=== PATIENT | female | born 1940 | race Caucasian/White ===

== ENCOUNTER → 2018-06-19 09:00 | Outpatient (CLI) | payer MEDICARE, SELFPAY | DX: Z23 Encounter for immunization (principal) | CPT/HCPCS: 90471; 90662 ==

== ENCOUNTER → 2018-11-24 12:49 | Outpatient (CLI) | payer MEDICARE, SELFPAY | PROVIDERS: PCP Internal Medicine; Visit Provider Internal Medicine | DX: M85.851 Other specified disorders of bone density and structure, right thigh (principal); Z78.0 Asymptomatic menopausal state; Z85.3 Personal history of malignant neoplasm of breast; Z90.722 Acquired absence of ovaries, bilateral | CPT/HCPCS: 77080 ==

== ENCOUNTER → 2020-05-02 08:13 | Outpatient (CLI) | payer MEDICARE, SELFPAY ==
[2020-05-02 09:01] LABS: Add Manual Diff / Slide Review NO; Basophils Absolute Auto 0 /uL (0-100); Basophils Percent Auto 0.3 % (0-2); Eosinophils Absolute Auto 400 /uL (0-450); Eosinophils Percent Auto 6.5 % (2-4); Hematocrit 38.9 % (36-46); Hemoglobin 13.1 g/dL (12.0-16.0); Lymphocytes Absolute Auto 2400 /uL (1100-4500); Lymphocytes Percent Auto 38.4 % (25-40); Mean Corpuscular HGB Conc 33.6 % (30-36); Mean Corpuscular Volume 92.2 fL (80-100); Monocytes Absolute Auto 600 /uL (0-900); Monocytes Percent Auto 9.1 % (3-14); Neutrophils Absolute Auto 2900 /uL (1500-7000); Neutrophils Percent Auto 45.7 % (50-75); Platelet Count 308 X10^3/uL (150-400); Red Blood Cell Count 4.22 X10^6/uL (4.0-5.2); Red Cell Distribution Width 13.1 % (11.6-14.8); White Blood Cell Count 6.3 X10^3/uL (4.5-11.0)
[2020-05-02 09:19] LABS: Alanine Aminotransferase 43 IU/L (<35); Albumin 4.5 g/dL (3.5-5.0); Albumin Globulin Ratio 1.8 (1.0-2.8); Alkaline Phosphatase 62 U/L (38-126); Aspartate Aminotransferase 34 IU/L (14-36); BUN Creatinine Ratio 17.6 (6-22); Bilirubin Total 0.7 mg/dL (0.2-1.3); Blood Urea Nitrogen 15 mg/dL (7-17); Calcium 10.1 mg/dL (8.4-10.2); Carbon Dioxide 27 mmol/L (22-32); Chloride 105 mmol/L (98-107); Cholesterol 225 mg/dL (140-199); Estimated Glomerular Filt Rate > 60.0 mL/min (>60); Globulin 2.5 g/dL (1.7-4.1); Glucose 112 mg/dL (80-110); HDL Cholesterol 75 mg/dL (40-60); HEMOLYSIS < 15 (0-50); LDL Cholesterol Calculated 128 mg/dL (<100); Potassium 4.3 mmol/L (3.4-5.1); Sodium 138 mmol/L (137-145); Triglycerides 111 mg/dL (35-150)
[2020-05-02 09:44] LABS: Free T3, Triiodothyronine Free 3.49 pg/mL (2.77-5.27); Free T4, Direct Thyroxine 0.98 ng/dL (0.78-2.19)
== END ==
PROVIDERS: PCP Family Medicine; Referring Provider Family Medicine; Visit Provider Family Medicine
DX: E78.5 Hyperlipidemia, unspecified (principal); I10 Essential (primary) hypertension; Z13.29 Encounter for screening for other suspected endocrine disorder
CPT/HCPCS: 36415; 80053; 80061; 84439; 84443; 84481; 85025

== ENCOUNTER → 2020-06-17 00:43 | Outpatient (CLI) | payer MEDICARE, SELFPAY | PROVIDERS: PCP Family Medicine; Referring Provider Internal Medicine; Visit Provider Internal Medicine | DX: Z23 Encounter for immunization (principal) | CPT/HCPCS: 90471; 90662 ==

== ENCOUNTER → 2020-09-18 13:26 | Outpatient (CLI) | payer MEDICARE, SELFPAY ==
[2020-09-18] MEDS: COVID-19 VACC(MODERNA-1)/PF 100 MCG/0.5 ML VIAL IM (13:32)
== END ==
PROVIDERS: PCP Family Medicine; Visit Provider Internal Medicine
DX: Z23 Encounter for immunization (principal)
CPT/HCPCS: 0011A; 91301

== ENCOUNTER → 2020-10-16 13:26 | Outpatient (CLI) | payer MEDICARE, SELFPAY ==
[2020-10-16] MEDS: COVID-19 VACC #2, MRNA(MOD) 100 MCG/0.5 ML VIAL IM (13:32)
== END ==
PROVIDERS: PCP Family Medicine; Visit Provider Internal Medicine
DX: Z23 Encounter for immunization (principal)
CPT/HCPCS: 0012A; 91301

== ENCOUNTER → 2021-04-16 09:43 | Outpatient (CLI) | payer MEDICARE, SELFPAY ==
[2021-04-16 10:56] LABS: COVID19 -Nasal RAPID Negative (Negative)
== END ==
PROVIDERS: PCP Family Medicine; Visit Provider Physician Assistant
DX: Z20.822 Contact with and (suspected) exposure to COVID-19 (principal)
CPT/HCPCS: 87635

== ENCOUNTER → 2021-04-21 11:42 | Outpatient (CLI) | payer MEDICARE, SELFPAY ==
[2021-04-21 12:39] LABS: COVID19 -Nasal RAPID Negative (Negative)
== END ==
PROVIDERS: PCP Family Medicine; Visit Provider Nurse Practitioner
DX: Z20.822 Contact with and (suspected) exposure to COVID-19 (principal)
CPT/HCPCS: 87635

== ENCOUNTER → 2021-04-27 13:51 | Outpatient (CLI) | payer MEDICARE, SELFPAY ==
[2021-04-27 15:38] LABS: COVID19 -Nasal RAPID Negative (Negative)
== END ==
PROVIDERS: PCP Family Medicine; Referring Provider Physician Assistant; Visit Provider Physician Assistant
DX: Z20.822 Contact with and (suspected) exposure to COVID-19 (principal)
CPT/HCPCS: 87635

== ENCOUNTER → 2023-05-20 08:00 | Outpatient (CLI) | payer MEDICARE, SELFPAY ==
[2023-05-20 08:43] LABS: Add Manual Diff / Slide Review NO; Basophils Absolute Auto 0 /uL (0-100); Basophils Percent Auto 0.2 % (0-2); Eosinophils Absolute Auto 200 /uL (0-450); Eosinophils Percent Auto 4.8 % (2-4); Hematocrit 35.2 % (36-46); Hemoglobin 12.3 g/dL (12.0-16.0); Lymphocytes Absolute Auto 1800 /uL (1100-4500); Lymphocytes Percent Auto 38.7 % (25-40); Mean Corpuscular Hemoglobin 32.6 PG (26-34); Mean Corpuscular Volume 93.2 fL (80-100); Monocytes Absolute Auto 500 /uL (0-900); Neutrophils Absolute Auto 2100 /uL (1500-7000); Neutrophils Percent Auto 46.3 % (50-75); Platelet Count 275 X10^3/uL (150-400); Red Blood Cell Count 3.78 X10^6/uL (4.0-5.2); Red Cell Distribution Width 13.4 % (11.6-14.8); White Blood Cell Count 4.6 X10^3/uL (4.5-11.0)
[2023-05-20 09:42] LABS: BUN Creatinine Ratio 34.3 (6-22); Blood Urea Nitrogen 23 mg/dL (7-17); Calcium 9.3 mg/dL (8.4-10.2); Carbon Dioxide 27 mmol/L (22-32); Chloride 97 mmol/L (98-107); Cholesterol 258 mg/dL (140-199); Estimated Glomerular Filt Rate > 60 mL/min (>60); Glucose 110 mg/dL (80-110); HDL Cholesterol 80 mg/dL (40-60); HEMOLYSIS < 15 (0-50); LDL Cholesterol Calculated 158 mg/dL (<100); Potassium 4.1 mmol/L (3.4-5.1); Sodium 132 mmol/L (137-145); Triglycerides 101 mg/dL (35-150)
== END ==
PROVIDERS: PCP Family Medicine; Referring Provider Family Medicine; Visit Provider Family Medicine
DX: E78.5 Hyperlipidemia, unspecified (principal); I10 Essential (primary) hypertension
CPT/HCPCS: 36415; 80048; 80061; 85025

== ENCOUNTER → 2023-06-29 19:43 | Outpatient (CLI) | payer MEDICARE, SELFPAY ==
--- NOTE | 2023-06-29 | DI.MRI.S_ITS ---
PROCEDURE: MR LUMBAR SPINE WO CON INDICATIONS: radiculopathy, lumbar region TECHNIQUE: Noncontrast sagittal T1 spin echo and T2 fast echo, sagittal STIR, and T2 fast spin echo through the lumbar spine. In cases with scoliosis, additional coronal T2 fast spin echo may be performed. COMPARISON: [facility], CR, XR LUMBAR SPINE 2 OR 3 VIEWS, 06/06/2023, 17:52. FINDINGS: Image quality: Excellent. Alignment and Curvature: Mild grade 1 anterolisthesis of L4 on L5. Bone Marrow: Marrow is of normal overall signal. No acute vertebral body compression fractures. Spinal Cord: Conus medullaris terminates at the L1 level. Visualized cord demonstrates normal signal and size. Paraspinous Soft Tissues: No paravertebral masses. T12-L1: Disc desiccation and mild height loss with diffuse disc bulge. Mild facet arthropathy. No central canal or neural foraminal stenosis. L1-L2: Disc desiccation and height loss with diffuse disc bulge. Superimposed small central disc protrusion. Mild facet arthropathy. No central canal stenosis. No neural foraminal stenosis. L2-L3: Disc desiccation and height loss with mild diffuse disc bulge. Facet arthropathy and thickening of the ligamentum flavum. Mild central canal stenosis. Mild bilateral neural foraminal stenosis. L3-L4: Disc desiccation and height loss with diffuse disc bulge. There is a superimposed right paracentral and subarticular disc protrusion resulting in severe narrowing of the right lateral recess with impingement of the descending right L4 nerve root and moderate to severe central canal stenosis. Facet arthropathy. Mild epidural lipomatosis. Mild bilateral neural foraminal stenosis. L4-L5: Disc desiccation. Facet arthropathy and thickening of the ligamentum flavum. Mild epidural lipomatosis. Moderate central canal stenosis. Narrowing of the right lateral recess with abutment versus impingement of the descending right L5 nerve root. L5-S1: Disc desiccation. Facet arthropathy and thickening of the ligamentum flavum. No central canal stenosis. Mild bilateral neural foraminal stenosis. IMPRESSION: 1. Multilevel degenerative changes of the lumbar spine as described above. 2. At L3-L4 there is a right paracentral disc protrusion resulting in severe narrowing of the right lateral recess with impingement of the descending right L4 nerve root. 3. Moderate to severe central canal stenosis at L3-L4 and moderate at L4-L5. 4. Mild multilevel neural foraminal stenosis. 5. Moderate narrowing of the right lateral recess at L4-5 with abutment versus impingement of the descending right L5 nerve root. Dictated by: Eleuterio Velazquez M.D. on 06/30/2023 at 10:28 Approved by: Eleuterio Velazquez M.D. on 06/30/2023 at 10:33
== END ==
PROVIDERS: PCP Family Medicine; Referring Provider Orthopaedic Surgery; Visit Provider Orthopaedic Surgery
DX: M54.16 Radiculopathy, lumbar region (principal); M51.26 Other intervertebral disc displacement, lumbar region; M48.061 Spinal stenosis, lumbar region without neurogenic claudication
CPT/HCPCS: 72148

== ENCOUNTER 2023-07-27 18:34 | Emergency (ER) | payer OTHER, SELFPAY ==
[2023-07-27 18:51] VITALS: BP 209/105; PULSE 90; RESP 18; TEMP 36.8; O2SAT 97; BMI 31.1
[2023-07-27 22:35] VITALS: PULSE 73; RESP 18; O2SAT 97
[2023-07-27 23:03] VITALS: BP 207/97
--- NOTE | 2023-07-27 23:11 | ED_ITS ---
HPI - Back Pain/Injury General Chief Complaint: Back Pain/Injury Stated Complaint: back pain for several months. Time Seen by Provider: 07/27/23 19:14 Source: patient, EMS, RN notes reviewed and old records reviewed Mode of arrival: EMS Limitations: no limitations History of Present Illness HPI Narrative: This is a 82-year-old female with history of hypertension, prior breast cancer with acute on chronic back pain. Patient states pain has been rapidly worsening over the past 1-2 months. She did go to PT which just seemed to aggravate things. She had an L-spine MRI on June 29, she saw pain management with Dr. Marvin was recommended to have injections was in touch with her insurance company today who states they had received the request. She has been taking meloxicam, gabapentin, Tylenol regularly for pain and has not had well- controlled pain. She was given a script for some tramadol. She notes she ran out of her gabapentin yesterday. She states she did not receive prednisone at 1 point which was the most helpful medication for her pain management. Patient states pain is more on the right radiates down her leg. She has paresthesias down the right which are not new or changed. She denies any new loss of bowel or bladder control but had noticed some more frequency in less urine output. She states her last doses of pain medication were at 2:00 p.m. today, she states does not seem to be much worse accept when she tries to move. Most comfortable position is lying flat on her back. Patient states she has not had any prior back surgeries. She is allergy to penicillin. She notes prior hysterectomy, bilateral mastectomy. Patient has not had injections to her back before. No tobacco, occasional alcohol, no recreational drugs. Dr. Hampton is her PCP. Related Data Home Medications Medication Instructions Recorded Confirmed Resmed Airsense 10 CPAP #1 ea 03/14/19 07/18/23 cholecalciferol (vitamin D3) 50 2,000 unit PO DAILY 03/14/19 07/18/23 mcg (2,000 unit) capsule milk thistle 3 tab PO DAILY 04/11/20 07/18/23 natural calm - magnesium 1 tab PO 04/11/20 07/18/23 AG1(greens powder) PO DAILY 07/07/23 07/18/23 Collegan (Correxko) PO BID 07/07/23 07/18/23 acetaminophen 500 mg tablet 1,000 mg PO QID 07/07/23 07/18/23 gabapentin 300 mg capsule 900 mg PO BID Lumbar Pain Nerve 07/07/23 07/18/23 Impingement meloxicam 15 mg tablet 15 mg PO DAILY Lumbar Pain nerve 07/07/23 07/18/23 impingement Previous Rx's Medication Instructions Recorded betamethasone dipropionate 0.05 % 1 applictn topical BID PRN itching 06/11/20 topical ointment #15 grams clobetasol 0.05 % scalp solution 1 applic topical DAILY PRN eczema 11/11/20 #50 mL Mastectomy bra to include #1 ea 04/20/23 prosthesis hydrochlorothiazide 25 mg tablet See Rx Instructions .Route 05/27/23 .COMPLEX #90 tabs lisinopril 40 mg tablet See Rx Instructions .Route 05/27/23 .COMPLEX #90 tabs tramadol 50 mg tablet 50 mg PO TID PRN pain #30 tabs 07/18/23 gabapentin 300 mg capsule 600 mg (2 x 300 mg) PO TID #60 caps 07/28/23 oxycodone 5 mg tablet 5 mg PO QID PRN pain #14 tabs 07/28/23 prednisone 10 mg tablets in a dose See Rx Instructions .Route 07/28/23 pack .COMPLEX #45 ea Allergies Allergy/AdvReac Type Severity Reaction Status Date / Time Penicillins Allergy Mild rashes Verified 07/18/23 15:32 Review of Systems Review of Systems ROS Unobtainable: All systems reviewed & are unremarkable except as noted in HPI and below Patient History Medical History Lumbar spondylosis Lumbar radiculopathy Chronic low back pain Strain of right piriformis muscle Segmental and somatic dysfunction of abdomen and other regions Sacral region somatic dysfunction Pelvic somatic dysfunction Acute right-sided low back pain without sciatica Chronic left shoulder pain Dry eye Skin tag Itching Acute right eye pain Right arm pain Cranial somatic dysfunction Thoracic region somatic dysfunction Segmental and somatic dysfunction of rib cage Cervical somatic dysfunction Chronic right shoulder pain Chronic neck pain with normal neurological examination Neck stiffness Bilateral shoulder pain Lower extremity edema Rash and nonspecific skin eruption Hyperlipidemia Rash and nonspecific skin eruption Bilateral arm pain Upper extremity somatic dysfunction Carpal tunnel syndrome of left wrist History of breast cancer Eczema (~2009) Osteoarthritis Shoulder pain (~1993) Mumps (~1952) Measles (~1948) History of chickenpox (~1947) Tinnitus (~2007) Hypertension Surgical History History of bilateral mastectomy Anesthesia History of cataract removal with insertion of prosthetic lens (~04/08/16) History of eyelid surgery (~07/05/14) History of hysterectomy (~1992) S/P arthroscopic knee surgery (~1989) History of mastectomy, total (~09/27/12) History of carpal tunnel release (~1996) Family History Father Cancer Mother Cancer History of emphysema Brother No problems noted. Brother COPD (chronic obstructive pulmonary disease) Dementia Mental health problem Hospice care Grandfather Cancer Hypertension Grandmother Cancer History of heart disease Hyperlipidemia Hypertension Grandfather History of heart disease Grandmother Hypertension Stroke Social History Smoking Status: Never smoker alcohol intake: current substance use type: does not use Smoking Status: Never smoker alcohol intake frequency: 0-2 drinks per day Substance Use Type: does not use Exam Narrative Exam Narrative: GENERAL: Alert and oriented x three, well-nourished female in mild distress unless she tries to move from the bed. HEENT: Head normocephalic, atraumatic, EOMI, pupils reactive, face symmetric, moist mucous membranes NECK: Supple, full range of motion CARDIOVASCULAR: Regular rate and rhythm without murmurs, rubs or gallops. RESPIRATORY: Breath sounds equal bilaterally, no wheezes rales or rhonchi. ABDOMEN: Soft, nontender. Normoactive bowel sounds all 4 quadrants. No guarding or rebound, rigidity, no mass : No CVA tenderness BACK: No cervical, thoracic or lumbar vertebral point tenderness. Patient has decreased range of motion. Rectal exam is [normal sphincter tone/decreased tone/no tone/deferred or refused]. Muscle strength is 5/5 in lower extremities, DTRs are 2/4 and lower extremities. Dorsalis pedis and tibialis pulses are 2+ and lower extremities. Sensation is intact in the lower extremities. EXTREMITIES: Normal range of motion, no clubbing or edema. Neurovascularly intact NEUROLOGICAL: Cranial nerves II through XII grossly intact. Moving all extremities SKIN: Warm, dry, no petechiae, no rashes or lesions. Initial Vital Signs Initial Vital Signs: Vital Signs Temperature 98.2 F 07/27/23 18:51 Pulse Rate 90 07/27/23 18:51 Respiratory Rate 18 07/27/23 18:51 Blood Pressure 209/105 H 07/27/23 18:51 Pulse Oximetry 97 07/27/23 18:51 Oxygen Delivery Method Room Air 07/27/23 18:51 Course Orders Ordered: Discontinued Medications Gabapentin (Gabapentin 600 Mg Tablet) 600 mg PO NOW ONE Stop: 07/27/23 23:39 Last Admin: 07/27/23 23:51 Dose: 600 mg Documented By: KASIA Ketorolac Tromethamine (Ketorolac 30 Mg/Ml Vial) 30 mg IM NOW ONE Stop: 07/27/23 23:39 Last Admin: 07/27/23 23:49 Dose: 30 mg Documented By: KASIA Morphine Sulfate (Morphine 4 Mg/Ml Inj) 4 mg IV NOW ONE Stop: 07/28/23 01:22 Last Admin: 07/28/23 01:44 Dose: 4 mg Documented By: KASIA Oxycodone/Acetaminophen (Oxycodone/Acetaminophen 5/325 Tablet) 2 tab PO NOW ONE Stop: 07/27/23 23:39 Last Admin: 07/27/23 23:51 Dose: 2 tab Documented By: KASIA Prednisone (Prednisone 20 Mg Tablet) 60 mg PO NOW ONE Stop: 07/27/23 23:39 Last Admin: 07/27/23 23:51 Dose: 60 mg Documented By: KASIA Vital Signs Vital signs: Vital Signs - 8 hr 07/27/23 22:35 07/27/23 23:03 07/28/23 01:45 Pulse Rate 73 60 Respiratory Rate 18 16 Blood Pressure 207/97 H 179/93 H Pulse Oximetry 97 97 Oxygen Delivery Method Room Air Room Air MDM - Back Pain/Injury Lab Data 07/28/23 01:30 07/28/23 01:30 Labs: Lab Results 07/28/23 Range/Units 01:30 WBC 6.2 (4.5-11.0) X10^3/uL RBC 3.91 L (4.0-5.2) X10^6/uL Hgb 12.8 (12.0-16.0) g/dL Hct 36.9 (36-46) % MCV 94.4 (80-100) fL MCH 32.8 (26-34) PG MCHC 34.7 (30-36) % RDW 12.8 (11.6-14.8) % Plt Count 291 (150-400) X10^3/uL Neut % (Auto) 67.1 (50-75) % Lymph % (Auto) 23.2 L (25-40) % [place] % (Auto) 6.2 (3-14) % Eos % (Auto) 3.1 (2-4) % Baso % (Auto) 0.4 (0-2) % Neut # (Auto) 4100 (2818-4637) /uL Lymph # (Auto) 1400 (8645-6161) /uL [place] # (Auto) 400 (0-900) /uL Eos # (Auto) 200 (0-450) /uL Baso # (Auto) 0 (0-100) /uL PT 14.3 H (10.1-12.7) SECONDS INR 1.2 (0.9-1.3) APTT 33 (26-36) SECONDS Sodium 134 L (137-145) mmol/L Potassium 3.7 (3.4-5.1) mmol/L Chloride 98 (98-107) mmol/L Carbon Dioxide 25 (22-32) mmol/L BUN 21 H (7-17) mg/dL Creatinine 0.67 (0.52-1.04) mg/dL Estimated GFR > 60 (>60) mL/min BUN/Creatinine Ratio 31.3 H (6-22) Glucose 110 (80-110) mg/dL Calcium 9.9 (8.4-10.2) mg/dL Total Bilirubin 0.7 (0.2-1.3) mg/dL AST 34 (14-36) IU/L ALT 34 (<35) IU/L Alkaline Phosphatase 49 (38-126) U/L Total Protein 7.3 (6.3-8.2) g/dL Albumin 4.4 (3.5-5.0) g/dL Globulin 2.9 (1.7-4.1) g/dL Albumin/Globulin Ratio 1.5 (1.0-2.8) Urine Dip Bedside Urine Glucose Negative Bedside Urine Bilirubin - Negative Bedside Urine Ketone - Negative Urine Specific [place] 1.01 Bedside Urine Occult Blood - Negative Bedside Urine pH 7 Bedside Urine Protein - Negative Bedside Urine Urobilinogen - Negative Bedside Urine Nitrite - Negative Bedside Urine Leukocytes - Negative Esterase Imaging Data MR Lopez 06/2023: Radiologist's Impression: Close Lumbar Spine MRI (Signed) Eleuterio Velazquez - 06/29/23 Bone Densitometry 11/24/18 Launch?[address] [address] Magnetic Resonance Report Signed Patient: Joann Houston MR#: [id number] : 1940 Acct:[id number] Age/Sex: 82 / F Date of Service: 06/29/23 Loc: MRI Accession Number: [id number] Procedure: MR lumbar spine wo con Ordering Provider: Carlos Devi D.O. PROCEDURE: MR LUMBAR SPINE WO CON INDICATIONS: radiculopathy, lumbar region TECHNIQUE: Noncontrast sagittal T1 spin echo and T2 fast echo, sagittal STIR, and T2 fast spin echo through the lumbar spine. In cases with scoliosis, additional coronal T2 fast spin echo may be performed. COMPARISON: [facility], CR, XR LUMBAR SPINE 2 OR 3 VIEWS, 06/06/2023, 17:52. FINDINGS: Image quality: Excellent. Alignment and Curvature: Mild grade 1 anterolisthesis of L4 on L5. Bone Marrow: Marrow is of normal overall signal. No acute vertebral body compression fractures. Spinal Cord: Conus medullaris terminates at the L1 level. Visualized cord demonstrates normal signal and size. Paraspinous Soft Tissues: No paravertebral masses. T12-L1: Disc desiccation and mild height loss with diffuse disc bulge. Mild facet arthropathy. No central canal or neural foraminal stenosis. L1-L2: Disc desiccation and height loss with diffuse disc bulge. Superimposed small central disc protrusion. Mild facet arthropathy. No central canal stenosis. No neural foraminal stenosis. L2-L3: Disc desiccation and height loss with mild diffuse disc bulge. Facet arthropathy and thickening of the ligamentum flavum. Mild central canal stenosis. Mild bilateral neural foraminal stenosis. L3-L4: Disc desiccation and height loss with diffuse disc bulge. There is a superimposed right paracentral and subarticular disc protrusion resulting in severe narrowing of the right lateral recess with impingement of the descending right L4 nerve root and moderate to severe central canal stenosis. Facet arthropathy. Mild epidural lipomatosis. Mild bilateral neural foraminal stenosis. L4-L5: Disc desiccation. Facet arthropathy and thickening of the ligamentum flavum. Mild epidural lipomatosis. Moderate central canal stenosis. Narrowing of the right lateral recess with abutment versus impingement of the descending right L5 nerve root. L5-S1: Disc desiccation. Facet arthropathy and thickening of the ligamentum flavum. No central canal stenosis. Mild bilateral neural foraminal stenosis. IMPRESSION: 1. Multilevel degenerative changes of the lumbar spine as described above. 2. At L3-L4 there is a right paracentral disc protrusion resulting in severe narrowing of the right lateral recess with impingement of the descending right L4 nerve root. 3. Moderate to severe central canal stenosis at L3-L4 and moderate at L4-L5. 4. Mild multilevel neural foraminal stenosis. 5. Moderate narrowing of the right lateral recess at L4-5 with abutment versus impingement of the descending right L5 nerve root. Dictated by: Eleuterio Velazquez M.D. on 06/30/2023 at 10:28 Approved by: Eleuterio Velazquez M.D. on 06/30/2023 at 10:33 [facility] Narrative Medical decision making narrative: 82-year-old female with acute on chronic low back pain no new acute neurologic changes although she did notice a little bit of more urinary frequency. She had an L-spine MR on 06/30/2023 which showed multilevel degenerative changes in particular L3-4 right paracentral disc protrusion with severe narrowing of the right lateral recess impinging the descending right L4 nerve root consistent with her region of symptoms and moderate to severe central canal stenosis L3-L4 and moderate L4-L5 with mild multilevel neural foraminal stenosis and moderate narrowing of the right lateral resource at L4-5 with the abutment versus impingement of the descending right L5 nerve root. Patient is quite painful when she tries to get off of the bed. She has not been taking significant amounts of narcotics for her pain management. She did stop her gabapentin or actually ran out they before. Given dose of Toradol, gabapentin, Percocet she is not had any pain manage medications since 2:00 p.m. Patient was able to get to bathroom and walk but painful. We will give additional dose of pain medication, some basic lab work. Patient came by ambulance, she was able to ambulate she is uncomfortable but she states it is much better. It is quietly in the evening there is no easy way for her to return home currently so discussed with patient will wait total better our and then likely discharge home with adjustment to her medications with a longer taper of steroids which she has found helpful and adjustment of her pain medications and refill of her gabapentin. Discharge Plan Departure Patient Disposition: Home Clinical Impression: Acute exacerbation of chronic low back pain Activity Restrictions/Additional Instructions: I hope you are able to follow up soon with Dr. Marvin to see if the injections maybe helpful for you. Included below referral to Dr. Ty, who is a local spinal surgeon maybe an alternate option for follow-up and treatment. Please call to set up an appointment. Continue your Tylenol you can take up to a 1000 mg every 6 hours as needed Continue meloxicam as prescribed. Continue taking your gabapentin. This prescription was refilled. There is also prescription for prednisone which may be helpful for your symptoms. Make sure you are taking food with this medication particularly while taking the meloxicam. It can cause irritation to her stomach. If these medications are inadequate for your pain control you can take oxycodone 1-2 tablets every 6 hours as needed. This medication can make you sleepy do not drive, perform hazardous activities or make any major decisions while taking it. This medication will make you constipated please take a stool softener once to twice daily until stools are soft and regular. Prescription sent to [facility]. Please return for rapidly worsening symptoms, fevers, loss of bowel or bladder control, inability to control her pain, new weakness, numbness, loss of sensation or inability to lift or move your leg other new or concerning changes. Prescriptions: New gabapentin 300 mg capsule 600 mg PO TID Qty: 60 0RF prednisone 10 mg tablets,dose pack See Rx Instructions .ROUTE .COMPLEX Qty: 45 0RF Rx Instructions: Take 5 tablets p.o. daily times 3 days, then 4 tablets daily x3 days, then 3 tablets daily x3 days, then 2 tablets daily x3 days, then 1 tablet daily x3 day oxycodone 5 mg tablet 5 mg PO QID PRN (Reason: pain) Qty: 14 0RF No Action clobetasol 0.05 % solution 1 applic topical DAILY PRN (Reason: eczema) Qty: 50 1RF (DME) Mastectomy bra to include prosthesis determined by pt See Rx Instructions .Route .MEDSUPPLY Qty: 1 0RF Rx Instructions: please supply patient with mastectomy bra to include prosthesis as pt requests hydrochlorothiazide 25 mg tablet See Rx Instructions .ROUTE .COMPLEX Qty: 90 0RF Dose Instruction: TAKE 1 TABLET BY MOUTH DAILY Rx Instructions: TAKE 1 TABLET BY MOUTH DAILY lisinopril 40 mg tablet See Rx Instructions .ROUTE .COMPLEX Qty: 90 0RF Dose Instruction: TAKE 1 TABLET BY MOUTH EVERY DAY Rx Instructions: TAKE 1 TABLET BY MOUTH EVERY DAY betamethasone dipropionate 0.05 % ointment 1 applictn TOP BID PRN (Reason: itching) Qty: 15 5RF meloxicam 15 mg tablet 15 mg PO DAILY gabapentin 300 mg capsule 900 mg PO BID acetaminophen 500 mg tablet 1,000 mg PO QID AG1(greens powder) PO DAILY Collegan (Correxko) PO BID milk thistle 175 mg 3 tab PO DAILY natural calm - magnesium 500 mg 1 tab PO tramadol 50 mg tablet 50 mg PO TID PRN (Reason: pain) Qty: 30 1RF (DME) Resmed Airsense 10 CPAP Qty: 1 Dose Instruction: As directed Patient Comments: Pressure: 7-15 cmH2O DME: [facility] Rx Instructions: As directed cholecalciferol (vitamin D3) 2,000 unit capsule 2,000 unit PO DAILY Referrals: Christophe Marvin MD [Physician] - Grey Ty MD [Physician] - Lamont Hampton DO [Primary Care Provider] - Stand Alone Forms: Patient Portal/API
[2023-07-27] MEDS: KETOROLAC 30 MG/ML VIAL IM (23:49)
[2023-07-27] MEDS: GABAPENTIN 600 MG TABLET PO (23:51)
[2023-07-27] MEDS: OXYCODONE/ACETAMINOPHEN 5/325 TABLET 2 TAB PO (23:51)
[2023-07-27] MEDS: predniSONE 20 MG TABLET 60 MG PO (23:51)
[2023-07-28] MEDS: MORPHINE 4 MG/ML INJ IV (01:44)
[2023-07-28 01:45] VITALS: BP 179/93; PULSE 60; RESP 16; O2SAT 97
[2023-07-28 01:56] LABS: Add Manual Diff / Slide Review NO; Basophils Absolute Auto 0 /uL (0-100); Basophils Percent Auto 0.4 % (0-2); Eosinophils Absolute Auto 200 /uL (0-450); Eosinophils Percent Auto 3.1 % (2-4); Hematocrit 36.9 % (36-46); Hemoglobin 12.8 g/dL (12.0-16.0); Lymphocytes Absolute Auto 1400 /uL (1100-4500); Lymphocytes Percent Auto 23.2 % (25-40); Mean Corpuscular HGB Conc 34.7 % (30-36); Mean Corpuscular Hemoglobin 32.8 PG (26-34); Mean Corpuscular Volume 94.4 fL (80-100); Monocytes Absolute Auto 400 /uL (0-900); Monocytes Percent Auto 6.2 % (3-14); Neutrophils Absolute Auto 4100 /uL (1500-7000); Neutrophils Percent Auto 67.1 % (50-75); Platelet Count 291 X10^3/uL (150-400); Red Blood Cell Count 3.91 X10^6/uL (4.0-5.2); Red Cell Distribution Width 12.8 % (11.6-14.8); White Blood Cell Count 6.2 X10^3/uL (4.5-11.0)
[2023-07-28 02:01] LABS: Alanine Aminotransferase 34 IU/L (<35); Albumin 4.4 g/dL (3.5-5.0); Albumin Globulin Ratio 1.5 (1.0-2.8); Alkaline Phosphatase 49 U/L (38-126); Aspartate Aminotransferase 34 IU/L (14-36); BUN Creatinine Ratio 31.3 (6-22); Bilirubin Total 0.7 mg/dL (0.2-1.3); Blood Urea Nitrogen 21 mg/dL (7-17); Calcium 9.9 mg/dL (8.4-10.2); Carbon Dioxide 25 mmol/L (22-32); Chloride 98 mmol/L (98-107); Estimated Glomerular Filt Rate > 60 mL/min (>60); Globulin 2.9 g/dL (1.7-4.1); Glucose 110 mg/dL (80-110); HEMOLYSIS 27 (0-50); Potassium 3.7 mmol/L (3.4-5.1); Sodium 134 mmol/L (137-145); Total Protein 7.3 g/dL (6.3-8.2)
[2023-07-28 02:06] LABS: INR 1.2 (0.9-1.3); Prothrombin Time 14.3 SECONDS (10.1-12.7)
[2023-07-28 02:09] LABS: PTT Partial Thromboplastin Tim 33 SECONDS (26-36)
[2023-07-28 05:18] VITALS: BP 170/78; PULSE 64; PULSE 65; RESP 16; O2SAT 94; O2SAT 95
[2023-07-28 05:30] VITALS: PULSE 55; O2SAT 94
[2023-07-28 06:00] VITALS: BP 149/67; PULSE 55
[2023-07-28 07:11] VITALS: BP 158/84; PULSE 73; RESP 16; O2SAT 97
== END 2023-07-28 07:22 | disposition home or self-care (01) ==
PROVIDERS: Emergency Provider Emergency Medicine; PCP Family Medicine
DX: M54.50 Low back pain, unspecified (principal); M54.16 Radiculopathy, lumbar region; Z79.899 Other long term (current) drug therapy
CPT/HCPCS: 36415; 80053; 81003; 85025; 85610; 85730; 96372; 96374; 99284; J1885; J2270

== ENCOUNTER 2023-08-17 07:46 | Outpatient (CLI) | payer MEDICARE, SELFPAY ==
[2023-08-17] VITALS (7 sets, daily range): BP systolic 144–240; BP diastolic 94–116; PULSE 70–77; RESP 14–20; TEMP 35.9; O2SAT 96–99
--- NOTE | 2023-08-17 09:14 | PC.NURSE ---
procedure cancelled due to high blood pressure, 240/116 checked multiple times.
--- NOTE | 2023-08-17 09:27 | PC.NURSE ---
Procedure aborted due to hypertension. Patient received in pre-post room in [facility]. BP remains elevated 240/106 and 230/98. Pain 05/22 to low back. Patient reports she did not take her routine BP medications this morning, took them upon return to pre-post. Dr. Marvin aware. Plan to monitor further for trending vitals.
--- NOTE | 2023-08-17 10:13 | PC.NURSE ---
Patient BP remains elevated (see trends). Dr. Marvin aware. Patient encouraged to be seen in the ED to be evaluated. She declined and opts to go over to [facility] to follow up with Dr. Hampton. Patient asymptomatic without complaints aside from her back pain.
== END 2023-08-17 10:17 | disposition home or self-care (01) ==
LOC: RAD 07:47
PROVIDERS: PCP Family Medicine; Referring Provider Anesthesiology; Visit Provider Anesthesiology
DX: M54.16 Radiculopathy, lumbar region (principal)
CPT/HCPCS: J1100

== ENCOUNTER 2023-08-24 09:17 | Outpatient (CLI) | payer OTHER, SELFPAY ==
[2023-08-24] VITALS (9 sets, daily range): BP systolic 142–173; BP diastolic 70–92; PULSE 53–62; RESP 14–21; TEMP 36.8; O2SAT 94–100
[2023-08-24] MEDS: MIDAZOLAM 2 MG/2 ML VIAL 0.5 MG IV (10:03)
[2023-08-24] MEDS: iopamidoL 15 ML VIAL 3 ML INJ (10:06)
[2023-08-24] MEDS: DEXAMETHASONE 10 MG/ML VIAL 20 MG INJ (10:06)
--- NOTE | 2023-08-24 10:06 | DI.RAD.S_ITS ---
PROCEDURE: PAIN L/S TRANSFORAMINAL INJECT INDICATIONS: RADICULOPATHY COMPARISON: None. FINDINGS: Fluoroscopic spot filming was performed to verify placement of spinal needles at the right L4-5 and L5-S1 level(s), as labeled on the films. Appropriate location(s) of the needle tip(s) was confirmed by injection of iodinated contrast. IMPRESSION: Intra procedural examination demonstrating appropriate positions of the needles. Dictated by: Eleuterio Velazquez M.D. on 08/24/2023 at 12:10 Approved by: Eleuterio Velazquez M.D. on 08/24/2023 at 12:11
--- NOTE | 2023-08-24 10:29 | P.PCN_ITS ---
Date/Time/Diagnoses Date of procedure: 08/24/23 Time of procedure: 10:00 Procedure Notes Physician: Christophe Marvin Total Fluoroscopy time (seconds): 27 Total sedation minutes: 12 Procedure in detail & Post-procedure care: Right L4-5 and L5-S1 Transforaminal Epidural Steroid Injection Indications: Joann is presenting for treatment of lumbar radiculopathy with low back and leg pain. Preoperative diagnosis: Lumbar radiculopathy Postoperative diagnosis: Same Focused Examination: Ax3 Mood and affect are normal Vital Signs: VSS ASA: 2 Consent: Following review of allergies and potential side effects/complications, including, but not necessarily limited to, infection, allergic reaction, local tissue breakdown, stroke, temporary or permanent nerve injury, paralysis, and possible , the patient indicated that they understood and agreed to proceed.? An informed consent document was signed by the patient, witnessed by a nurse and placed in the patient's chart.? Additionally, other treatment options including medications and physical therapy were reviewed with the patient. All questions were answered. Site was then marked. Anesthesia: Oral sedation. After review of previous anesthetic history and IV conscious sedation, the patient was deemed safe to proceed with today's procedure with IV conscious sedation. IV sedation was accomplished with midazolam 0.5 mg administered by the RN after order by Dr. Marvin. Sedation was titrated to patient comfort during the course of the procedure. Patient remained responsive to all verbal commands. Position: Prone Monitoring: NIBP, Pulse oximetry, 3 lead EKG Needle used: 22G 5 inch spinal needle Contrast: Isovue 300M Injectate: 7.5 mg Dexamethasone mixed with 1% lidocaine 1 ml and normal saline 1 mL per site Technique: The skin was prepped with chloraprep and draped in a sterile fashion. Time out was performed as per protocol. Oxygen applied via NC. Skin and subcutaneous structures of the needle entry site were infiltrated with 3mL of lidocaine 1%. Under fluoroscopic guidance, using an ipsilateral oblique view,?a 22 gauge 5 inch needle was advanced to the base of the right L4-5?pedicle.? The needle was advanced to the superio-posterior aspect of the neural foramen under lateral view.? Oblique and AP views were rechecked. No paresthesias noted by the patient during needle placement. In AP view and utilizing real-time digital subtraction fluoroscopy, 2 ml contrast was slowly injected. Epidural spread was observed without evidence for intravascular nor intrathecal uptake. Contrast spread was seen craniocaudally. The above injectate was then administered without paresthesias and the needle was subsequently withdrawn. Skin and subcutaneous structures of the needle entry site were infiltrated with 3mL of lidocaine 1%. Under fluoroscopic guidance, using an ipsilateral oblique view,?a 22 gauge 5 inch needle was advanced to the base of the right L5-S1? pedicle.? The needle was advanced to the superio-posterior aspect of the neural foramen under lateral view.? Oblique and AP views were rechecked. No paresthesias noted by the patient during needle placement. In AP view and utilizing real-time digital subtraction fluoroscopy, 2 ml contrast was slowly injected. Epidural spread was observed without evidence for intravascular nor intrathecal uptake. Contrast spread was seen craniocaudally. The above injectate was then administered without paresthesias and the needle was subsequently withdrawn. Band-Aids applied to injection sites. EBL: less than 1 ml Complications: None Post Procedure: Patient was taken to the recovery and monitored. The patient was provided a Pain Log to continue to record the patient's response to the target- specific procedure prior to the patient's follow-up visit with the referring physician. Patient was stable upon discharge. Detailed post procedure instructions were provided. Patient was asked to call in the event of worsening pain, fever, weakness, numbness or bladder or bowel incontinence.
== END 2023-08-24 10:40 | disposition home or self-care (01) ==
PROVIDERS: PCP Family Medicine; Referring Provider Anesthesiology; Visit Provider Anesthesiology
DX: M54.16 Radiculopathy, lumbar region (principal)
CPT/HCPCS: 64483; 99152; J1100; J2250

== ENCOUNTER → 2024-07-24 14:49 | Outpatient (CLI) | payer MEDICARE, SELFPAY ==
[2024-07-24 15:25] LABS: Add Manual Diff / Slide Review NO; Basophils Absolute Auto 0 /uL (0-100); Basophils Percent Auto 0.4 % (0-2); Eosinophils Absolute Auto 200 /uL (0-450); Eosinophils Percent Auto 3.7 % (2-4); Hematocrit 36.4 % (36-46); Hemoglobin 12.7 g/dL (12.0-16.0); Lymphocytes Absolute Auto 1800 /uL (1100-4500); Lymphocytes Percent Auto 32.7 % (25-40); Mean Corpuscular HGB Conc 34.9 % (30-36); Mean Corpuscular Hemoglobin 31.7 PG (26-34); Mean Corpuscular Volume 90.8 fL (80-100); Monocytes Absolute Auto 500 /uL (0-900); Monocytes Percent Auto 9.9 % (3-14); Neutrophils Absolute Auto 2900 /uL (1500-7000); Neutrophils Percent Auto 53.3 % (50-75); Platelet Count 335 X10^3/uL (150-400); Red Blood Cell Count 4.01 X10^6/uL (4.0-5.2); Red Cell Distribution Width 13.1 % (11.6-14.8); White Blood Cell Count 5.4 X10^3/uL (4.5-11.0)
[2024-07-24 15:47] LABS: Alanine Aminotransferase 42 IU/L (<35); Albumin 4.5 g/dL (3.5-5.0); Albumin Globulin Ratio 1.9 (1.0-2.8); Alkaline Phosphatase 61 U/L (38-126); Aspartate Aminotransferase 36 IU/L (14-36); BUN Creatinine Ratio 24.2 (6-22); Bilirubin Total 0.8 mg/dL (0.2-1.3); Blood Urea Nitrogen 16 mg/dL (7-17); Calcium 10.2 mg/dL (8.4-10.2); Carbon Dioxide 28 mmol/L (22-32); Chloride 99 mmol/L (98-107); Cholesterol 256 mg/dL (140-199); Estimated Glomerular Filt Rate > 60 mL/min (>60); Globulin 2.4 g/dL (1.7-4.1); Glucose 94 mg/dL (80-110); HDL Cholesterol 91 mg/dL (40-60); HEMOLYSIS < 15 (0-50); LDL Cholesterol Calculated 143 mg/dL (<100); Potassium 3.6 mmol/L (3.4-5.1); Sodium 134 mmol/L (137-145); Total Protein 6.9 g/dL (6.3-8.2); Triglycerides 109 mg/dL (35-150)
== END ==
LOC: LAB 14:50
PROVIDERS: PCP Family Medicine; Referring Provider Family Medicine; Visit Provider Family Medicine
DX: I10 Essential (primary) hypertension (principal); E78.5 Hyperlipidemia, unspecified
CPT/HCPCS: 36415; 80053; 80061; 85025

== ENCOUNTER → 2025-08-01 10:05 | Outpatient (CLI) | payer OTHER, SELFPAY ==
[2025-08-01 10:34] LABS: Add Manual Diff / Slide Review NO; Hematocrit 35.2 % (36-46); Hemoglobin 12.3 g/dL (12.0-16.0); Lymphocytes Absolute Auto 1800 /uL (1100-4500); Mean Corpuscular HGB Conc 34.9 % (30-36); Mean Corpuscular Hemoglobin 32.0 PG (26-34); Mean Corpuscular Volume 91.7 fL (80-100); Platelet Count 287 X10^3/uL (150-400)
[2025-08-01 10:53] LABS: Alanine Aminotransferase 57 IU/L (<35); Albumin 4.4 g/dL (3.5-5.0); Albumin Globulin Ratio 1.7 (1.0-2.8); Alkaline Phosphatase 52 U/L (38-126); Blood Urea Nitrogen 31 mg/dL (7-17); Calcium 10.1 mg/dL (8.4-10.2); Carbon Dioxide 30 mmol/L (22-32); Chloride 99 mmol/L (98-107); Cholesterol 245 mg/dL (140-199); Estimated Glomerular Filt Rate > 60 mL/min (>60); Globulin 2.6 g/dL (1.7-4.1); Glucose 117 mg/dL (70-99); HDL Cholesterol 86 mg/dL (40-60); HEMOLYSIS < 15 (0-50); Potassium 4.1 mmol/L (3.4-5.1); Sodium 136 mmol/L (137-145); Total Protein 7.0 g/dL (6.3-8.2); Triglycerides 117 mg/dL (35-150)
== END ==
PROVIDERS: PCP Family Medicine; Referring Provider Family Medicine; Visit Provider Family Medicine
DX: I10 Essential (primary) hypertension (principal); E78.5 Hyperlipidemia, unspecified
CPT/HCPCS: 36415; 80053; 80061; 85025